=== PATIENT | female | born 1995 | race American Indian/Alaskan Native ===

== ENCOUNTER 2018-08-17 06:00 | Outpatient (CLI) | payer MEDICAID ==
[2018-08-17 06:19] VITALS: BP 128/77
[2018-08-17] MEDS ORDERED: VISTARIL PO ONE (07:02)
== END 2018-08-17 07:18 | disposition home or self-care (01) ==
LOC: TRG 06:00
PROVIDERS: ATTEND Obstetrics & Gynecology
DX: O62.8 Other abnormalities of forces of labor (principal); O99.513 Diseases of the respiratory system complicating pregnancy, third trimester; Z3A.39 39 weeks gestation of pregnancy
CPT/HCPCS: 59025; Q0177

== ENCOUNTER 2018-08-17 16:53 | Inpatient (IN) | payer MEDICAID ==
[2018-08-17] MEDS: PITOCin/NS 20 UNIT/1000ML DRIP 20 UNITS/1,000 ML BAG IV SCH ×2 (16:55→20:40)
[2018-08-17] MEDS ORDERED: ZOFRAN IV PRN (20:23)
[2018-08-17] MEDS ORDERED: MILK OF MAGNESIA PO PRN (20:23)
[2018-08-17] MEDS ORDERED: LANSINOH TP PRN (20:23)
[2018-08-17] MEDS ORDERED: PHENERGAN PR PRN (20:23)
[2018-08-17] MEDS ORDERED: TUCKS PAD TP PRN (20:23)
[2018-08-17] MEDS ORDERED: DULCOLAX PR PRN (20:23)
[2018-08-17] MEDS ORDERED: TYLENOL PO PRN (20:23)
[2018-08-17] MEDS ORDERED: BENADRYL PO PRN (20:23)
[2018-08-17] MEDS ORDERED: PHENERGAN PO PRN (20:23)
[2018-08-17] MEDS ORDERED: PROAIR IH PRN (20:25)
--- NOTE | 2018-08-17 20:26 | Procedure Note ---
OB Delivery Note - Delivery Date of Delivery: 08/17/18 Estimated blood loss: other (unknown as patient delivered at home and presented to L&D by EMS after delivery) - Vaginal Delivery presentation: vertex Intrapartum events: precipitous labor- <3hr Delivery induction: none Delivery monitor: none Route of delivery: Delivery placenta: spontaneous Episiotomy: none Delivery laceration: none Anesthesia: none Delivery comments: 22 year old G1 now P1 presented to labor and delivery on 08/17/18 by EMS after a precipitous vaginal delivery of a term liveborn male at home. EDC 08/23/18 ; EGA 39 weeks, 1 day gestation. Patient states she did not realize she was in advanced labor; she states she called EMS but they did not make it to her home before she delivered. She states the baby was born quickly and easily (caught by father of baby) and cried immediately after . She states her amniotic fluid was clear and she noted it only at the time of . She states she did not have excessive vaginal bleeding. Intact placenta and membranes delivered spontaneously upon patient's arrival in L&D; delivered by Day Walsh RN. Upon nurse midwife's arrival in room, patient was holding her baby skin to skin. Placenta and membranes were examined and appeared intact. Vaginal sweep was performed and was negative. Perineum, vulva, and vagina examined and no lacerations found. Fundus firm and midline and lochia was small in amount. Pitocin was given to prevent uterine atony. Mother and baby stable.
--- NOTE | 2018-08-17 20:26 | History and Physical Report ---
History of Present Illness Date of examination: 08/17/18 Date of admission: 08/17/18 16:53 Chief complaint: Delivered precipitously at home. History of present illness: 22 year old presented to L&D by EMS after having a precipitous spontaneous vaginal delivery of a liveborn male infant at home without complication. Patient states she received her care at [facility] and was planning to deliver there but did not realize she was in advanced labor before she called EMS. See delivery note for reported details of her delivery. Patient brings records with her of her labs and first visit. She state she received regular care and had a visit with her provider last week. These records are not available. . LMP 11/28/17 uncertain. EDC 08/23/18 (based on US). EGA 39 weeks, 1 day gestation. labs: O+, antibody screen negative, pap smear negative, rubella immune , RPR nonreactive, hepatitis B surface antigen negative, HIV negative, CF negative, GC negative, CT negative, quad screen negative, HIV negative, GBS negative. Patient reports history of asthma for which she occasionally uses Albuterol inhaler. She reports no other medical problems. Patient denies any surgeries in the past. Current meds: PNV. NKDA. Patient state she does not smoke cigarettes, drink alcohol, or use recreational drugs. She denies abuse. Patient reports her family history is negative. Past History Past Medical History: asthma Past Surgical History: no surgical history [employer] History: denies: abnormal PAP smear, chlamydia, gonorrhea, hepatitis B, hepatitis C, herpes, HIV, syphilis Family/Genetic History: none Social history: single, lives with family, full code. denies: smoking, alcohol abuse, prescription drug abuse, IV drug use - Obstetrical History Expected Date of Delivery: 08/23/18 Actual Gestation: 39 Week(s) 2 Day(s) : 1 Para: 1 Hx # Term Pregnancies: 1 Number of Pregnancies: 0 Spontaneous Abortions: 0 Induced : 0 Number of Living Children: 1 Medications and Allergies Allergies Allergy/AdvReac Type Severity Reaction Status Date / Time No Known Allergies Allergy Unverified 08/17/18 06:06 Home Medications Medication Instructions Recorded Confirmed Last Taken Type Vitamin Tablet 1 tab PO QDAY 08/17/18 08/17/18 1 Month Ago History ~07/17/18 Active Meds: Active Medications Acetaminophen (Tylenol) 650 mg PO Q4H PRN PRN Reason: Pain MILD(1-3)/Fever >100.5/RYAN Bisacodyl (Dulcolax) [address] BID PRN PRN Reason: Constipation Diphenhydramine HCl (Benadryl) 25 mg PO Q6H PRN PRN Reason: Itching Oxytocin/Sodium Chloride (Pitocin/Ns 20 Unit/1000ml Drip) 20 units in 1,000 mls @ 0 mls/hr IV DIRECT JAVIER Last Admin: 08/17/18 16:55 Dose: 250 mls/hr Ibuprofen (Motrin) 600 mg PO Q6H JAVIER Magnesium Hydroxide (Milk Of Magnesia) 30 ml PO HS PRN PRN Reason: Constipation Multi-Ingredient Ointment (Lansinoh) 1 applic TP PRN PRN PRN Reason: Sore Nipples Ondansetron HCl (Zofran) 4 mg IV Q8H PRN PRN Reason: Nausea And Vomiting Promethazine HCl (Phenergan) [address] Q6H PRN PRN Reason: Nausea And Vomiting Promethazine HCl (Phenergan) 25 mg PO Q6H PRN PRN Reason: Nausea And Vomiting Sodium Chloride (Sodium Chloride Flush Syringe 10 Ml) 10 ml IV PRN NR Witch Suzanna/Glycerin (Tucks Pad) 1 each TP PRN PRN PRN Reason: Hemorrhoid/cleansing/soothing Review of Systems All systems: negative (precipitous vaginal delivery at home less than 1 hour before arrival) - Vital Signs Vital signs: Vital Signs Pulse BP 97 H 131/72 08/17/18 16:59 08/17/18 16:59 Temp Pulse Resp BP Pulse Ox 98.9 F 115 H 16 136/91 08/17/18 18:35 08/17/18 19:29 08/17/18 18:35 08/17/18 19:29 - Physical Exam Cardiovascular: Regular rate, Normal S1, Normal S2 Lungs: Positive: Clear to auscultation Abdomen: Positive: normal appearance, soft. Negative: distention, tenderness, guarding, rigidity Genitourinary (Female): Positive: normal external genitalia, normal perenium. Negative: perineal/vulvar lesions Vagina: Positive: normal moisture Uterus: Positive: enlarged. Negative: tender Anus/Rectum: Positive: normal perianal skin Extremities: Positive: normal. Negative: edema Results Result Diagrams: 08/17/18 20:19 All other labs normal. Assessment and Plan A: patient who experienced a precipitous of liveborn male infant at home less than one hour ago. 39 weeks, 1 day gestation. Doing well. P: Admit. Admission labs. Anticipate normal course. Get full records from [facility].
[2018-08-17] MEDS: MOTRIN PO SCH ×2 (20:39→23:22)
[2018-08-17 20:51] LABS: Hemoglobin 11.7 gm/dl (10.1-14.3); Mean Corpuscular HGB Conc 33 % (30-34); Mean Corpuscular Hemoglobin 29 pg (28-32); Mean Corpuscular Volume 87 fl (79-97); Platelet Count 179 K/mm3 (140-440); Red Cell Distribution Width 14.2 % (13.2-15.2)
[2018-08-17] MEDS: PROVENTIL IH PRN (20:57)
[2018-08-17] MEDS ORDERED: SODIUM CHLORIDE FLUSH SYRINGE 10 ML IV PRN (21:00)
[2018-08-18] MEDS: MOTRIN PO SCH ×3 (05:09→16:54)
[2018-08-18 09:24] LABS: Hematocrit 34.1 % (30.3-42.9); Hemoglobin 11.1 gm/dl (10.1-14.3)
--- NOTE | 2018-08-18 10:12 | Progress Note ---
Assessment and Plan - Patient Problems (1) Status post normal vaginal delivery Current Visit: Yes Status: Acute Plan to address problem: PPD 1 - stable Continue routine PP orders Discharge to home 08/19/18 Follow up at [facility] as needed or in 6 weeks for exam (2) Cough productive of yellow sputum Current Visit: Yes Status: Acute Plan to address problem: Encouraged increased PO hydration Start Robitussin prn Subjective - Subjective Date of service: 08/18/18 Principal diagnosis: PPD #1; s/p home Patient reports: appetite normal, voiding normally, pain well controlled, ambulating normally, other (c/o productive cough x2 days. Denies SOB or chest pain.) : doing well, other (breast and bottle feeding) Objective - Vital Signs Latest vital signs: Vital Signs Temp Pulse Pulse Resp Resp BP BP 08/18/18 08:42 98.6 F 88 18 117/78 08/18/18 04:05 98.0 F 86 18 122/62 08/18/18 00:00 98.2 F 96 H 18 114/66 08/17/18 23:22 18 08/17/18 21:10 81 20 08/17/18 20:57 80 20 08/17/18 20:39 18 08/17/18 19:58 99.1 F 97 H 18 129/78 08/17/18 19:29 115 H 136/91 08/17/18 19:14 93 H 128/76 08/17/18 18:59 96 H 122/76 08/17/18 18:35 98.9 F 16 08/17/18 18:29 81 141/83 08/17/18 18:14 90 134/75 08/17/18 17:59 85 131/71 08/17/18 17:44 92 H 140/75 08/17/18 17:29 89 131/76 08/17/18 17:14 96 H 134/76 08/17/18 16:59 97 H 131/72 Pulse Ox 08/18/18 08:42 97 08/18/18 04:05 08/18/18 00:00 08/17/18 23:22 08/17/18 21:10 08/17/18 20:57 08/17/18 20:39 08/17/18 19:58 97 08/17/18 19:29 08/17/18 19:14 08/17/18 18:59 08/17/18 18:35 08/17/18 18:29 08/17/18 18:14 08/17/18 17:59 08/17/18 17:44 08/17/18 17:29 08/17/18 17:14 08/17/18 16:59 Intake and Output 08/17/18 08/18/18 08/18/18 23:59 07:59 15:59 Intake Total 937.5 240 Output Total 2100 450 700 Balance -1162.5 -210 -700 Intake: IV 937.5 PITOCin/NS 20 UNIT/1000ML 937.5 DRIP 20 units In 1,000 ml @ As Directed IV DIRECT [facility] Rx#:[id number] Oral 240 Output: Urine 2100 450 700 Void 2100 450 700 Other: Total, Intake Amount 240 Total, Output Amount 900 450 700 Weight 68.492 kg Estimated Blood Loss 100 - Exam Abdomen: Present: normal appearance, soft Vulva: both: normal Uterus: Present: normal, firm, fundal height at umbilicus Extremities: Present: normal - Labs Labs: Abnormal lab results 08/17/18 Range/Units 20:19 WBC 16.0 H (4.5-11.0) K/mm3
--- NOTE | 2018-08-18 10:19 | Discharge Summary ---
Providers - Providers Date of Admission: 08/17/18 16:53 Date of discharge: 08/19/18 Attending physician: TOO BRINK Primary care physician: TOO BRINK Hospitalization Reason for admission: IUP at term, other (home ) Delivery: Episiotomy: none Laceration: none Other procedures: none complications: none Discharge diagnosis: IUP at term delivered baby: male Hospital course: Uncomplicated Condition at discharge: Stable Disposition: [id number] TO HOME OR SELFCARE - Discharge Diagnoses (1) Status post normal vaginal delivery Status: Acute (2) Cough productive of yellow sputum Status: Acute Comment: No fever or chills On Robitussin prn Plan - Provider Discharge Summary Activity: routine, no sex for 6 weeks, no heavy lifting 4 weeks, no strenuous exercise Diet: routine Instructions: routine Additional instructions: [] Smoking cessation referral if applicable(refer to patient education folder for contact #) [] Refer to [facility]'s [facility] Booklet Call your doctor immediately for: * Fever > 100.5 * Heavy vaginal bleeding ( >1 pad per hour) * Severe persistent headache * Shortness of breath * Reddened, hot, painful area to leg or breast * Drainage or odor from incision. * Keep incision clean and dry at all times and follow doctor's instructions regarding bathing/showering - Follow up plan Follow up: TOO BRINK [Primary Care Provider] - 6 Weeks (Follow up at [place] as needed or in 6 weeks for exam)
[2018-08-18] MEDS: ROBITUSSIN PO PRN ×2 (11:53→20:04)
[2018-08-18] MEDS: PROVENTIL IH PRN (17:09)
[2018-08-19] MEDS: MOTRIN PO SCH (05:27)
[2018-08-19] MEDS ORDERED: BOOSTRIX IM ONE (06:00)
[2018-08-19 08:28] VITALS: BP 114/72
== END 2018-08-19 12:30 | disposition home or self-care (01) | DRG 775 ==
LOC: LD 16:53 → OB 20:11
PROVIDERS: ADMIT Obstetrics & Gynecology; ATTEND Obstetrics & Gynecology
PROC: 10E0XZZ Delivery of Products of Conception, External Approach (ICD-10-PCS; principal; 2018-08-17)
PROC: 3E0234Z Introduction of Serum, Toxoid and Vaccine into Muscle, Percutaneous Approach (ICD-10-PCS; 2018-08-19)
DX: O99.53 Diseases of the respiratory system complicating the puerperium (principal); Z23 Encounter for immunization; R05 Cough; J45.909 Unspecified asthma, uncomplicated
CPT/HCPCS: 36415; 85014; 85018; 85027; 86592; 86850; 86900; 86901; 90471; 90715; 94640; 99211; G0463; J2590